=== PATIENT | male | born 1980 | race Caucasian/White ===

== ENCOUNTER 2016-04-27 10:53 | Emergency (ER) | payer BC ==
[2016-04-27 12:35] VITALS: BP 128/81
--- NOTE | 2016-04-27 13:31 | UC ---
Lower Extremity/Ankle HPI - HPI Summary HPI Summary: Stepped off edge of curb and has had pain inside the ankle since. - History of Current Complaint Chief Complaint: UCLowerExtremity Stated Complaint: LEFT FOOT PAIN Time Seen by Provider: 04/27/16 13:24 Hx Obtained From: Patient Onset/Duration: Sudden Onset, Lasting Days Severity Initially: Mild Severity Currently: Moderate Pain Intensity: 6 Pain Scale Used: 0-10 Numeric Aggravating Factor(s): Standing, Ambulation Alleviating Factor(s): Nothing Able to Bear Weight: Yes - Allergies/Home Medications Allergies/Adverse Reactions: Allergies Allergy/AdvReac Type Severity Reaction Status Date / Time Penicillin G Allergy Intermediate Rash Verified 12/08/14 12:00 Oxycodone [From Percocet] Allergy See Comment Verified 12/08/14 12:00 PMH/Surg Hx/FS Hx/Imm Hx Previously Healthy: Yes Endocrine History Of: Denies: Diabetes, Thyroid Disease Cardiovascular History Of: Denies: Cardiac Disorders, Hypertension, Pacemaker/ICD Respiratory History Of: Denies: Asthma GI/ History Of: Denies: Renal Disease - Surgical History Surgical History: Yes Surgery Procedure, Year, and Place: appy 2000,RT SHOULDER SLAP REPAIR 09/16 - Family History Known Family History: Negative: Cardiac Disease, Hypertension - Social History Alcohol Use: Occasionally Substance Use Type: None Smoking Status (MU): Heavy Every Day Tobacco Smoker Type: Cigarettes Amount Used/How Often: 1/2 ppd - Immunization History Most Recent Tetanus Shot: not certain but had stitches in shoulder last summer Review of Systems Constitutional: Negative Skin: Negative Eyes: Negative ENT: Negative Respiratory: Negative Cardiovascular: Negative Gastrointestinal: Negative Genitourinary: Negative Motor: Negative Neurovascular: Negative Musculoskeletal: Arthralgia, Decreased ROM Neurological: Negative Psychological: Negative All Other Systems Reviewed And Are Negative: Yes Physical Exam Triage Information Reviewed: Yes Appearance: Well-Appearing, Well-Nourished, Pain Distress Vital Signs: Initial Vital Signs Temp 99.0 F 04/27/16 12:30 Pulse 92 04/27/16 12:30 Resp 16 04/27/16 12:30 BP 128/81 04/27/16 12:30 Pulse Ox 97 04/27/16 12:30 Vital Signs Reviewed: Yes Eye Exam: Normal Eyes: Positive: Conjunctiva Clear ENT Exam: Normal ENT: Positive: Normal ENT inspection, Pharynx normal, TMs normal Dental Exam: Normal Neck exam: Normal Neck: Positive: Supple, Nontender, No Lymphadenopathy Respiratory Exam: Normal Respiratory: Positive: Chest non-tender, Lungs clear, Normal breath sounds Cardiovascular Exam: Normal Cardiovascular: Positive: RRR, No Murmur, Pulses Normal Abdominal Exam: Normal Abdomen Description: Positive: Nontender, No Organomegaly, Soft Bowel Sounds: Positive: Present Musculoskeletal Exam: Normal Musculoskeletal: Positive: No Edema, Strength Limited @ - in all planes, ROM Limited @ - left ankle flexion and pronation Neurological Exam: Normal Neurological: Positive: Alert, Muscle Tone Normal Psychological Exam: Normal Psychological: Positive: Age Appropriate Behavior Skin Exam: Normal Lower Extremity Course/Dx - Course Course Of Treatment: hx obtained, exam performed, xray ordered, negative for fracture, post op shoe and paola wrap given, patient refusing anything for pain. educated on RICE - Differential Dx/Diagnosis Differential Diagnosis/HQI/PQRI: Contusion, Dislocation, Fracture (Closed), Sprain, Strain Provider Diagnoses: Foot sprain, mid foot left Discharge - Discharge Plan Condition: Stable Disposition: HOME Patient Education Materials: Foot Sprain (ED), RICE Therapy (ED) Additional Instructions: I recommend staying off your foot as much as possible for the next few days. Wear the supportive shoe to prevent excess bending of the mid foot. ibuprofen for pain. elevate the foot at rest. Warm soaks will increase circulation and allow for better healing. Follow up with any non resolved or increasing pain.
--- NOTE | 2016-04-27 13:50 | RAD ---
INDICATION: Left ankle injury. TECHNIQUE: 3 views of the left ankle were obtained. FINDINGS: The bones are in normal alignment. No fracture is seen. Joint spaces appear maintained. IMPRESSION: NO EVIDENCE FOR FRACTURE.
== END 2016-04-27 14:18 | disposition home or self-care (01) ==
LOC: UCCORT 10:53
DX: S93.602A Unspecified sprain of left foot, initial encounter (principal); W10.1XXA Fall (on)(from) sidewalk curb, initial encounter; Y92.9 Unspecified place or not applicable; F17.210 Nicotine dependence, cigarettes, uncomplicated; Z88.0 Allergy status to penicillin; Z88.5 Allergy status to narcotic agent
CPT/HCPCS: 99213; G0463

== ENCOUNTER 2018-05-27 13:49 | Emergency (ER) | payer BC ==
[2018-05-27 14:04] VITALS: BP 159/80
--- NOTE | 2018-05-27 14:14 | UC ---
Respiratory Complaint HPI - HPI Summary HPI Summary: cough x 7 days cough is dry , harsh + nasal congestion , pnd, sore throat, no fever, no chills, no wheezing, no sob was on antibiotics 10 days ago for strep throat - History of Current Complaint Chief Complaint: UCGeneralIllness Stated Complaint: COUGH Time Seen by Provider: 05/27/18 14:00 Hx Obtained From: Patient Onset/Duration: Gradual Onset, Lasting Days - 7, Still Present Timing: Constant Severity Initially: Moderate Severity Currently: Moderate Pain Intensity: 5 Character: Cough: Nonproductive Aggravating Factors: Exertion, Deep Breaths Alleviating Factors: Nothing Associated Signs And Symptoms: Positive: URI, Nasal Congestion. Negative: Dyspnea, Fever, Chills, Pleuritic Chest Pain, Wheezing, Hemoptysis, Dizziness, Calf Pain, Calf Swelling - Allergies/Home Medications Allergies/Adverse Reactions: Allergies Allergy/AdvReac Type Severity Reaction Status Date / Time oxycodone Allergy See Comment Verified 05/27/18 14:00 Penicillins Allergy Rash Verified 05/27/18 14:00 Home Medications: Home Medications Ibuprofen TAB* [Advil TAB*] 800 mg PO Q6H PRN 05/27/18 [History Confirmed ] PMH/Surg Hx/FS Hx/Imm Hx Previously Healthy: Yes - Surgical History Surgical History: Yes Surgery Procedure, Year, and Place: appy 2000,RT SHOULDER SLAP REPAIR 09/16 - Family History Known Family History: Negative: Cardiac Disease, Hypertension - Social History Alcohol Use: Occasionally Substance Use Type: None Smoking Status (MU): Heavy Every Day Tobacco Smoker Type: Cigarettes Amount Used/How Often: 1/2 ppd - Immunization History Most Recent Tetanus Shot: not certain but had stitches in shoulder last summer Review of Systems All Other Systems Reviewed And Are Negative: Yes Constitutional: Positive: Negative Skin: Positive: Negative Eyes: Positive: Negative ENT: Positive: Sore Throat, Nasal Discharge Respiratory: Positive: Cough Cardiovascular: Positive: Negative Is Patient Immunocompromised?: No Physical Exam Triage Information Reviewed: Yes Appearance: Well-Appearing, No Pain Distress, Well-Nourished Vital Signs: Initial Vital Signs Temp 98.3 F 05/27/18 14:01 Pulse 94 05/27/18 14:01 Resp 24 05/27/18 14:01 BP 159/80 05/27/18 14:01 Pulse Ox 98 05/27/18 14:01 Vital Signs Reviewed: Yes Eye Exam: Normal Eyes: Positive: Conjunctiva Clear ENT: Positive: Normal ENT inspection, Hearing grossly normal, Pharyngeal erythema, Nasal congestion Neck: Positive: Supple, Nontender, No Lymphadenopathy Respiratory: Positive: Chest non-tender, Lungs clear, Normal breath sounds Cardiovascular: Positive: RRR, No Murmur, Pulses Normal Skin Exam: Normal UC Diagnostic Evaluation - Laboratory O2 Sat by Pulse Oximetry: 98 Respiratory Course/Dx - Differential Dx/Diagnosis Provider Diagnosis: Acute bronchitis Discharge - Sign-Out/Discharge Documenting (check all that apply): Patient Departure All imaging exams completed and their final reports reviewed: No Studies - Discharge Plan Condition: Stable Disposition: HOME Prescriptions: Codeine Phosphate/Guaifenesin [Cheratussin AC] 10 syp PO Q8H #120 ml MDD 30 ml predniSONE [Prednisone 20 MG TAB] 20 mg PO BID #10 tablet Patient Education Materials: Acute Bronchitis (ED) Referrals: Orestes Kirkland PA [Primary Care Provider] - If Needed - Billing Disposition and Condition Condition: STABLE Disposition: Home
== END 2018-05-27 14:15 | disposition home or self-care (01) ==
LOC: UCCORT 13:49
DX: J20.9 Acute bronchitis, unspecified (principal); R09.81 Nasal congestion; R09.82 Postnasal drip; F17.210 Nicotine dependence, cigarettes, uncomplicated; Z88.5 Allergy status to narcotic agent; Z88.0 Allergy status to penicillin
CPT/HCPCS: 99212; G0463

== ENCOUNTER 2018-06-29 14:35 | Emergency (ER) | payer BC ==
[2018-06-29 15:54] VITALS: BP 142/77
== END 2018-06-29 16:08 | disposition left against medical advice (07) ==
LOC: UCCORT 14:35
DX: Z53.21 Procedure and treatment not carried out due to patient leaving prior to being seen by health care provider (principal)

== ENCOUNTER 2018-06-29 21:13 | Emergency (ER) | payer BC ==
[2018-06-29 21:49] VITALS: BP 131/89
--- NOTE | 2018-06-29 22:01 | UC ---
Lower Extremity/Ankle HPI - HPI Summary HPI Summary: 38 yo male presents with RIGHT foot pain. He tells me that yesterday he misstepped and his right foot everted slightly. He did not fall. Since that time has had pain at the 1st MTP. He has taken ibuprofen and elevated/iced the area with good relief of pain, but as soon as he weight bears again the pain returns. He is wearing crocs for comfort which significantly improve his pain. - History of Current Complaint Chief Complaint: UCLowerExtremity Stated Complaint: R FOOT INJURY Time Seen by Provider: 06/29/18 22:01 Hx Obtained From: Patient Onset/Duration: Sudden Onset Severity Initially: Severe Severity Currently: Moderate Pain Intensity: 6 Pain Scale Used: 0-10 Numeric - Allergies/Home Medications Allergies/Adverse Reactions: Allergies Allergy/AdvReac Type Severity Reaction Status Date / Time oxycodone Allergy See Comment Verified 06/29/18 21:49 Penicillins Allergy Rash Verified 06/29/18 21:49 PMH/Surg Hx/FS Hx/Imm Hx - Additional Past Medical History Additional PMH: None - Surgical History Surgical History: Yes Surgery Procedure, Year, and Place: appy 2000,RT SHOULDER SLAP REPAIR 09/16 - Family History Known Family History: Negative: Cardiac Disease, Hypertension - Social History Occupation: Employed Full-time Lives: With Family Alcohol Use: Occasionally Substance Use Type: None Smoking Status (MU): Heavy Every Day Tobacco Smoker Type: Cigarettes Amount Used/How Often: 1/2 ppd - Immunization History Most Recent Tetanus Shot: not certain but had stitches in shoulder last summer Review of Systems All Other Systems Reviewed And Are Negative: Yes Constitutional: Positive: Negative Skin: Positive: Negative Respiratory: Positive: Negative Cardiovascular: Positive: Negative Neurovascular: Positive: Negative Musculoskeletal: Positive: Other: - Right foot pain Neurological: Positive: Negative Psychological: Positive: Negative Physical Exam - Summary Physical Exam Summary: GENERAL: NAD. WDWN. No pain distress. SKIN: No rashes, sores, lesions, or open wounds. CHEST: No accessory muscle use. Breathing comfortably and in no distress. CV: Pulses intact PT and DP. Cap refill <2seconds MSK: RIGHT FOOT: Mild TTP at dorsal aspect of 1st MTP. No erythema, warmth, edema. FROM. No obvious bony deformities. NEURO: Alert. Sensations intact and symmetric B/L LEs PSYCH: Age appropriate behavior. Triage Information Reviewed: Yes Vital Signs: Initial Vital Signs Temp 98.4 F 06/29/18 21:44 Pulse 90 06/29/18 21:44 Resp 18 06/29/18 21:44 BP 131/89 06/29/18 21:44 Pulse Ox 99 06/29/18 21:44 Vital Signs Reviewed: Yes Lower Extremity Course/Dx - Course Course Of Treatment: XR: No radiologist reading after 1800, therefore wet read by myself is negative for fracture. Discussed results of XR with pt. I suspect he has a tendon/ligament strain to the area. He was offered a post-op shoe or CAM boot, but he declined as his crocs are quite comfortable. I advised him to rest and continue applying ice to the area. Continue ibuprofen. I suspect this pain will improve in a few days with appropriate rest. - Differential Dx/Diagnosis Provider Diagnosis: Metatarsalgia Discharge - Sign-Out/Discharge Documenting (check all that apply): Patient Departure All imaging exams completed and their final reports reviewed: No - Discharge Plan Condition: Stable Disposition: HOME Patient Education Materials: Metatarsalgia (DC) Referrals: Orestes Kirkland PA [Primary Care Provider] - Additional Instructions: If you develop a fever, shortness of breath, chest pain, new or worsening symptoms - please call your PCP or go to the ED. Your blood pressure was high at todays visit. Please see your primary provider within 4 weeks for recheck and re-evaluation. 1) I do not see a fracture or area of concern on your X-Ray's tonight, but the radiologist will take a look at these in the morning and we will call you with any changes 2) Please rest and apply ice to your foot. Take ibuprofen as directed for pain 3) Wear your steel-toe crocs for support. - Billing Disposition and Condition Condition: STABLE Disposition: Home
--- NOTE | 2018-06-30 14:49 | UC ---
- Progress Note Progress Note: RADIOLOGY REPORT REVIEWED. No fracture of the right foot is noted. NO CHANGE IN MGMT. Course/Dx - Diagnoses Provider Diagnoses: Metatarsalgia Discharge - Sign-Out/Discharge Documenting (check all that apply): Post-Discharge Follow Up All imaging exams completed and their final reports reviewed: Yes - Discharge Plan Condition: Stable Disposition: HOME Patient Education Materials: Metatarsalgia (DC) Referrals: Orestes Kirkland PA [Primary Care Provider] - Additional Instructions: If you develop a fever, shortness of breath, chest pain, new or worsening symptoms - please call your PCP or go to the ED. Your blood pressure was high at todays visit. Please see your primary provider within 4 weeks for recheck and re-evaluation. 1) I do not see a fracture or area of concern on your X-Ray's tonight, but the radiologist will take a look at these in the morning and we will call you with any changes 2) Please rest and apply ice to your foot. Take ibuprofen as directed for pain 3) Wear your steel-toe crocs for support. - Billing Disposition and Condition Condition: STABLE Disposition: Home
== END 2018-06-29 22:26 | disposition home or self-care (01) ==
LOC: UCEAST 21:13
DX: M77.41 Metatarsalgia, right foot (principal); F17.210 Nicotine dependence, cigarettes, uncomplicated; Z88.0 Allergy status to penicillin; Z88.5 Allergy status to narcotic agent
CPT/HCPCS: 99212; G0463